=== PATIENT | female | born 1960 | race Caucasian/White ===

== ENCOUNTER 2021-10-28 13:35 | Outpatient (CLI) | payer BC | END 2021-10-28 13:36 | disposition home or self-care (01) | LOC: CSHMAMMO 13:35 | PROVIDERS: ATTEND Nurse Practitioner Family | DX: Z12.31 Encounter for screening mammogram for malignant neoplasm of breast (principal); Z91.89 Other specified personal risk factors, not elsewhere classified | CPT/HCPCS: 77063; 77067 ==

== ENCOUNTER 2024-02-01 10:22 | Outpatient (CLI) | payer BC | END 2024-02-01 10:23 | disposition home or self-care (01) | LOC: CSHMAMMO 10:22 | PROVIDERS: ATTEND Obstetrics & Gynecology | DX: Z12.31 Encounter for screening mammogram for malignant neoplasm of breast (principal); Z91.89 Other specified personal risk factors, not elsewhere classified | CPT/HCPCS: 77063; 77067 ==

== ENCOUNTER 2025-02-03 11:30 | Outpatient (CLI) | payer BC | END 2025-02-03 11:31 | disposition home or self-care (01) | LOC: CSHMAMMO 11:30 | PROVIDERS: ATTEND Obstetrics & Gynecology | DX: Z12.31 Encounter for screening mammogram for malignant neoplasm of breast (principal); Z80.3 Family history of malignant neoplasm of breast; Z91.89 Other specified personal risk factors, not elsewhere classified | CPT/HCPCS: 77063; 77067 ==

== ENCOUNTER 2025-04-08 10:53 | Outpatient (CLI) | payer BC ==
[2025-04-08 12:21] LABS: Hematocrit 43.2 % (34.9-44.5); Hemoglobin 13.8 g/dL (12.0-15.5)
== END 2025-04-08 10:54 | disposition home or self-care (01) ==
LOC: CSHLAB 10:53
PROVIDERS: ATTEND Specialist
DX: Z01.818 Encounter for other preprocedural examination (principal)
CPT/HCPCS: 85014; 85018; 93005; 93010

== ENCOUNTER 2025-04-10 06:44 | Day surgery (SDC) | payer BC ==
[2025-04-08 11:17] VITALS: BMI 32.5
[2025-04-10] MEDS ORDERED: Lidocaine 1% w/Epinephrine 1:200K 30 ML VIAL ONE (07:16)
[2025-04-10] MEDS ORDERED: Bacitracin 1 PK ONE (07:16)
[2025-04-10] MEDS ORDERED: AFRIN NASAL MIST 15 ML BOT ONE (08:11)
[2025-04-10] MEDS ORDERED: PROPOFOL 20 ML ONE (08:44)
[2025-04-10] MEDS ORDERED: Ondansetron PF 4 MG/2 ML Vial ONE (08:51)
[2025-04-10] MEDS ORDERED: Rocuronium Bromide 10 MG/ML (10ML VIAL) ONE (08:51)
[2025-04-10] MEDS ORDERED: Oxymetazoline HCl 0.05% (15 ML) ONE (09:22)
[2025-04-10] MEDS ORDERED: SUGAMMADEX SODIUM 200 MG/2 ML VIAL ONE (09:29)
[2025-04-10] MEDS ORDERED: HYDROcodone/Acetaminophen 5/325 mg Tablet ONE (11:24)
== END 2025-04-10 12:00 | disposition home or self-care (01) ==
LOC: CSHSDC 06:44
PROVIDERS: ATTEND Specialist
PROC: 09BU0ZZ Excision of Right Ethmoid Sinus, Open Approach (ICD-10-PCS; principal; 2025-04-10)
DX: J32.4 Chronic pansinusitis (principal); J34.2 Deviated nasal septum; J34.3 Hypertrophy of nasal turbinates; J33.0 Polyp of nasal cavity; Z90.49 Acquired absence of other specified parts of digestive tract; Z90.710 Acquired absence of both cervix and uterus
CPT/HCPCS: 88304; 88341; 88342; J0169; J1100; J2250; J2405; J2704; J3010